=== PATIENT | male | born 1970 | race African-American/Black ===

== ENCOUNTER 2017-12-28 21:32 | Emergency (ER) | payer OTHER ==
[2017-12-28] MEDS ORDERED: Adacel (T-DAP) 0.5 ML VIAL ONE (21:58)
[2017-12-28 21:59] LABS: #Basophils 0.1 thou/uL (0.0-0.2); #Eosinphils 0.1 thou/uL (0.0-0.7); #Lymphocytes 2.3 thou/uL (1.20-3.40); #Monocytes 0.6 thou/uL (0.11-0.59); #Neutrophils 3.1 thou/uL (1.40-6.50); %Basophils 1.8 % (0.0-1.0); %Eosinophils 1.9 % (0.0-10.0); %Lymphocytes 37.4 % (21.0-51.0); %Monocytes 8.9 % (0.0-10.0); %Neutrophils 49.9 % (42.0-75.0); Hemoglobin 14.8 g/dL (14.0-18.0); Mean Corpuscular HGB CONC 32.2 g/dL (32.0-36.0); Mean Corpuscular Hemoglobin 27.4 pg (27.0-31.0); Mean Corpuscular Volume 85.2 fl (80.0-94.0); Mean Platelet Volume 7.5 fL (7.4-10.4); Platelet Count 212 thou/uL (130-400); RBC Distribution Width 11.2 % (11.5-14.5); White Blood Cell (WBC) Count 6.2 thou/uL (4.8-10.8)
[2017-12-28 22:09] LABS: INR-International Normal Ratio 1.1; PTT 26.1 SEC (22.9-36.1)
[2017-12-28] MEDS ORDERED: Triple Antibiotic Oint 1 GM Packet ONE (23:10)
== END 2017-12-28 23:35 | disposition home or self-care (01) ==
LOC: NAV ERS 21:32
DX: T63.011A Toxic effect of rattlesnake venom, accidental (unintentional), initial encounter (principal); I10 Essential (primary) hypertension; F17.290 Nicotine dependence, other tobacco product, uncomplicated; Z79.899 Other long term (current) drug therapy; Z23 Encounter for immunization
CPT/HCPCS: 36415; 85025; 85610; 85730; 90471; 90715